=== PATIENT | female | born 1960 | race Caucasian/White ===

== ENCOUNTER 2018-04-04 21:48 | Emergency (ER) | payer MEDICAID ==
--- NOTE | 2018-04-04 23:33 | ER Document Report ---
ED Medical Screen (RME) - General Chief Complaint: Nausea/Vomiting/Diarrhea Stated Complaint: NAUSEA/VOMITING Time Seen by Provider: 04/04/18 23:30 Notes: Patient is a 57-year-old female that comes by EMS for chief complaint of over 1 week of vomiting, diarrhea, weakness, inability to eat, and congested cough. She had a fever a few days ago but none since. She states that every time she eats she vomits or has multiple episodes of diarrhea. She denies recent antibiotics. Generalized abdominal pain. Congested cough. Past medical history includes diabetes, CAD, PE on blood thinners, smoking, COPD. TRAVEL OUTSIDE OF THE [place] IN LAST 30 DAYS: No - Related Data Allergies/Adverse Reactions: Penicillins Allergy (Severe, Verified 09/10/12 20:51) Sulfa (Sulfonamide Antibiotics) Allergy (Severe, Verified 09/10/12 20:51) Past Medical History - Past Medical History Cardiac Medical History: Reports: Hx Hypercholesterolemia, Hx Hypertension Pulmonary Medical History: Reports: Hx Asthma, Hx COPD, Hx Pneumonia, Hx Sleep Apnea Denies: Hx Tuberculosis Past Surgical History: Reports: Hx Cholecystectomy, Hx Gynecologic Surgery - bladder tack, Hx Hysterectomy, Hx Oral Surgery. Denies: Hx Pacemaker - Immunizations Immunizations up to date: Yes Hx Diphtheria, Pertussis, Tetanus Vaccination: Yes Physical Exam - Vital signs Vitals: Temp Pulse BP Pulse Ox 97.6 F 98 170/92 H 100 04/04/18 22:00 04/04/18 22:00 04/04/18 22:00 04/04/18 22:00 - Respiratory Respiratory status: No: Respiratory distress Breath sounds: Decreased air movement, Nonproductive cough - Frequent congested nonproductive cough - Abdominal Tenderness: Tender - Minimal generalized tenderness, nonspecific, no guarding, exam limited by sitting position Course - Re-evaluation Re-evalutation: I have greeted and performed a rapid initial assessment of this patient. A comprehensive ED assessment and evaluation of the patient, analysis of test results and completion of the medical decision making process will be conducted by additional ED providers. - Vital Signs Vital signs: Temp Pulse Resp BP Pulse Ox 97.6 F 98 170/92 H 100 04/04/18 22:00 04/04/18 22:00 04/04/18 22:00 04/04/18 22:00 Doctor's Discharge - Discharge Referrals: MILLY SANTANA PA [Primary Care Provider] - Follow up as needed
[2018-04-05 00:02] LABS: ABSOLUTE BASOPHILS # (AUTO) 0.1 10^3/uL (0.0-0.2); ABSOLUTE EOSINOPHILS # (AUTO) 0.1 10^3/uL (0.0-0.6); ABSOLUTE LYMPHOCYTES (AUTO) 1.4 10^3/uL (0.5-4.7); ABSOLUTE MONOCYTES (AUTO) 0.7 10^3/uL (0.1-1.4); ABSOLUTE NEUT (AUTO) 14.3 10^3/uL (1.7-8.2); BASOPHILS % (AUTO) 0.5 % (0-2); EOSINOPHILS % (AUTO) 0.4 % (0-6); HEMATOCRIT 44.1 % (36.0-47.0); HEMOGLOBIN 14.8 g/dL (12.0-15.5); LYMPHOCYTES % (AUTO) 8.2 % (13-45); MEAN CORPUSCULAR HEMOGLOBIN 27.8 pg (27.0-33.4); MEAN CORPUSCULAR HGB CONC 33.6 g/dL (32.0-36.0); MEAN CORPUSCULAR VOLUME 83 fl (80-97); MONOCYTES % (AUTO) 4.2 % (3-13); PLATELET COUNT 266 10^3/uL (150-450); RED BLOOD COUNT 5.33 10^6/uL (3.72-5.28); RED CELL DISTRIBUTION WIDTH 14.2 % (11.5-14.0); SEGMENTED NEUTROPHILS % (AUTO) 86.7 % (42-78); TOTAL CELLS COUNTED % (AUTO) 100 %; WHITE BLOOD COUNT 16.5 10^3/uL (4.0-10.5)
[2018-04-05 00:28] LABS: ALANINE AMINOTRANSFERASE 22 U/L (9-52); ALBUMIN 3.7 g/dL (3.5-5.0); ALKALINE PHOSPHATASE 80 U/L (38-126); ANION GAP 10 (5-19); ASPARTATE AMINO TRANSFERASE 14 U/L (14-36); BILIRUBIN,DIRECT 0.3 mg/dL (0.0-0.4); BILIRUBIN,TOTAL 0.5 mg/dL (0.2-1.3); BLOOD UREA NITROGEN 12 mg/dL (7-20); CALCIUM 9.5 mg/dL (8.4-10.2); CARBON DIOXIDE 29 mmol/L (22-30); CHLORIDE 105 mmol/L (98-107); GLUCOSE 123 mg/dL (75-110); POTASSIUM 4.6 mmol/L (3.6-5.0); SODIUM 143.9 mmol/L (137-145); TOTAL PROTEIN 6.4 g/dL (6.3-8.2)
[2018-04-05 01:10] LABS: APPEARANCE,URINE CLEAR; BILIRUBIN,URINE NEGATIVE (NEGATIVE); COLOR,URINE YELLOW; GLUCOSE, URINE NEGATIVE (NEGATIVE); KETONES,URINE TRACE mg/dL (NEGATIVE); LEUKOCYTE ESTERASE,URINE NEGATIVE (NEGATIVE); NITRITE,URINE NEGATIVE (NEGATIVE); PROTEIN,URINE NEGATIVE (NEGATIVE); URINE SPECIFIC GRAVITY 1.016
--- NOTE | 2018-04-05 02:08 | ER Document Report ---
ED General - General Chief Complaint: Nausea/Vomiting/Diarrhea Stated Complaint: NAUSEA/VOMITING Time Seen by Provider: 04/04/18 23:30 Notes: The patient is a 57-year-old female, past medical history gastric ulcer, renal, presents with 1 week of epigastric pain, intermittent nausea and vomiting is now a mild dull frontal headache. She has had headaches like this in the past when she is dehydrated. She was also having some watery diarrhea, but this is improving. She denies fevers, hematemesis, chest pain, shortness of breath, back pain, syncope, rash, focal weakness, numbness, tingling, neck stiffness, difficulty walking or seizures. TRAVEL OUTSIDE OF THE [place] IN LAST 30 DAYS: No - Related Data Allergies/Adverse Reactions: Penicillins Allergy (Severe, Verified 09/10/12 20:51) Sulfa (Sulfonamide Antibiotics) Allergy (Severe, Verified 09/10/12 20:51) Past Medical History - General Information source: Patient - Social History Smoking Status: Current Every Day Smoker Family History: Reviewed & Not Pertinent - Past Medical History Cardiac Medical History: Reports: Hx Hypercholesterolemia, Hx Hypertension Pulmonary Medical History: Reports: Hx Asthma, Hx COPD, Hx Pneumonia, Hx Sleep Apnea Denies: Hx Tuberculosis Past Surgical History: Reports: Hx Cholecystectomy, Hx Gynecologic Surgery - bladder tack, Hx Hysterectomy, Hx Oral Surgery. Denies: Hx Pacemaker - Immunizations Immunizations up to date: Yes Hx Diphtheria, Pertussis, Tetanus Vaccination: Yes Review of Systems - Review of Systems Notes: REVIEW OF SYSTEMS: CONSTITUTIONAL: -fevers, -chills EENT: -eye pain, -difficulty swallowing, -nasal congestion CARDIOVASCULAR: -chest pain, -syncope. RESPIRATORY: +cough, -SOB GASTROINTESTINAL: +epigastric abdominal pain, +nausea, +vomiting, +diarrhea GENITOURINARY: -dysuria, -hematuria MUSCULOSKELETAL: -back pain, -neck pain SKIN: -rash or skin lesions. HEMATOLOGIC: -easy bruising or bleeding. LYMPHATIC: -swollen, enlarged glands. NEUROLOGICAL: -altered mental status or loss of consciousness, +headache, - neurologic symptoms PSYCHIATRIC: -anxiety, -depression. ALL OTHER SYSTEMS REVIEWED AND NEGATIVE. Physical Exam - Vital signs Vitals: Temp Pulse BP Pulse Ox 97.6 F 98 170/92 H 100 04/04/18 22:00 04/04/18 22:00 04/04/18 22:00 04/04/18 22:00 - Notes Notes: PHYSICAL EXAMINATION: GENERAL: Well-appearing, well-nourished and in no acute distress. HEAD: Atraumatic, normocephalic. EYES: Pupils equal round and reactive to light, extraocular movements intact, sclera anicteric, conjunctiva are normal. ENT: nares patent, oropharynx clear without exudates. Moist mucous membranes. NECK: Normal range of motion, supple without lymphadenopathy LUNGS: Breath sounds clear to auscultation bilaterally and equal. No wheezes rales or rhonchi. HEART: Regular rate and rhythm without murmurs ABDOMEN: Soft, mild epigastric tenderness, normoactive bowel sounds. No guarding, no rebound. No masses appreciated. EXTREMITIES: Normal range of motion, no pitting or edema. No cyanosis. NEUROLOGICAL: Cranial nerves grossly intact. Normal speech, normal gait. Normal sensory and motor exams. PSYCH: Normal mood, normal affect. SKIN: Warm, Dry, normal turgor, no rashes or lesions noted. Course - Re-evaluation Re-evalutation: Patient appears very well. Her headache is benign in nature and is not consistent with ICH, SAH or meningitis at this time. After headache cocktail, she is no longer feeling nauseous and does not have a headache. Blood work is unremarkable, other than a leukocytosis, but she has had higher values in the past. Instructed her to increase her Prilosec to twice a day and follow-up with her primary care physician for further evaluation and treatments. - Vital Signs Vital signs: Temp Pulse Resp BP Pulse Ox 97.6 F 98 18 170/92 H 99 04/05/18 02:51 04/05/18 02:51 04/05/18 02:51 04/05/18 02:51 04/05/18 02:51 - Laboratory Result Diagrams: 04/04/18 23:46 04/04/18 23:46 Laboratory results interpreted by me: 04/04/18 04/04/18 04/05/18 23:46 23:46 00:55 WBC 16.5 H RBC 5.33 H RDW 14.2 H Seg Neutrophils % 86.7 H Lymphocytes % 8.2 L Absolute Neutrophils 14.3 H Glucose 123 H Urine Ketones TRACE H Urine Urobilinogen 2.0 H - Diagnostic Test Radiology reviewed: Image reviewed, Reports reviewed Radiology results interpreted by me: CXR: NAD Discharge - Discharge Clinical Impression: Epigastric abdominal pain, Nausea vomiting and diarrhea Headache Qualifiers: Headache type: unspecified Headache chronicity pattern: unspecified pattern Intractability: not intractable Qualified Code(s): R51 - Headache Condition: Stable Disposition: HOME, SELF-CARE Additional Instructions: HEADACHE: The physician does not feel that the headache you are experiencing has a serious underlying cause. Most headaches are due to emotional stress, with resultant muscle tension (tension headache). Occasionally, headaches are secondary to changes in the blood vessels of the scalp (vascular headache and migraine headache). Sometimes, a headache is the first symptom of another developing illness, such as a viral infection. You have no evidence of stroke, bleeding, meningitis, or other serious cause of your headache. The treatment of headaches varies with the severity and cause of the pain. Not all headaches need pain shots. In fact, there is evidence that using narcotics for headaches may make them worse in the long run. The physician will determine the therapy that's in your best interest. If you develop a fever, if the headache is different from any you've previously experienced, or if the headache progressively worsens, then call your physician at once or go to the emergency room. REGLAN (METOCLOPRAMIDE): Reglan has been prescribed. This medicine affects the stomach and intestines. It can be used to treat nausea and vomiting, to prevent reflux of stomach acid up into the esophagus, or to increase the contractions of the stomach and intestines. It is often prescribed for esophagitis, and for paralysis of the stomach in diabetics. Reglan can cause either mild restlessness or drowsiness. You should contact the doctor at once if you become extremely restless, anxious, or cannot sleep, or if you develop uncontrollable motions of the lips, tongue, or jaw. Do not take alcohol with this medicine. Do not drive or operate machinery until you have been taking this medicine long enough to know how it affects you. Call the doctor if you develop abdominal pains, lightheadedness, black stool, or blood in the stool or vomitus. USE OF DIPHENHYDRAMINE: Diphenhydramine (Benadryl) is an antihistamine and has been recommended to help treat your headache and to prevent side effects of other medications used to treat headaches. The medication can be repeated four times daily. Age Elixir (12.5 mg/tsp) 25 mg pill adult 1-2 tabs Antihistamines may cause drowsiness, especially with the first dose. Do not operate machinery or drive while under the effects of the medication. Do not combine the medication with alcohol, or with any other medication without talking to your doctor. FOLLOW-UP CARE: If you have been referred to a physician for follow-up care, call the physician s office for an appointment as you were instructed or within the next two days. If you experience worsening or a significant change in your symptoms, notify the physician immediately or return to the Emergency Department at any time for re-evaluation. VOMITING: Vomiting (or nausea without vomiting) can be caused by many other different problems. It can mean that something's wrong with the stomach, such as ulcers or inflammation or the intestinal tract, such as appendicitis. But it can also be a symptom of a problem that has nothing to do with the stomach or intestines. Vomiting is common with severe headaches, earaches, tonsillitis, and kidney infections, etc. We see it with pneumonia or heart attacks. Drugs can cause nausea and vomiting. Many abdominal problems cause vomiting; for example, gallstones, kidney stones, pancreatitis, and intestinal obstruction ( blocked bowels). In most cases, curing the vomiting depends on fixing the problem that caused it. For temporary relief, we may use an anti-nausea medicine. For home use, we can prescribe suppositories, chewable pills, pills that dissolve in the mouth, or liquid anti-nausea drugs. If the vomiting seems to be caused by a problem in the stomach, acid-suppressing drugs may be prescribed as well. It's important to avoid dehydration. Sip small amounts of clear liquids ( soft drinks, tea, broth, etc) . Try to take fluids frequently even if you are vomiting to prevent dehydration. Take increasing amounts of fluid and when liquids are being consumed successfully, advance to small amounts of bland food (toast, soups, mashed potatoes, etc.) until you are able to resume a regular diet. Avoid aspirin, tobacco, and alcohol. If the vomiting worsens, if the problem that's making you vomit worsens, or if there's evidence of bleeding in the stomach (such as black, tarry stool, or bloody or black vomit), you should return immediately. Also, return if abdominal pain worsens or becomes localized to one area or you develop high fever. Call your doctor if you aren't improved in 24 hours. DIARRHEA, NON-SPECIFIC: Diarrhea means frequent, watery stools. There are many causes. Any problem that keeps the intestinal tract from absorbing water from the stool can lead to diarrhea. A sudden new diarrhea problem is usually caused by a virus, food sensitivity, toxic bacteria, or drugs. In this case, we expect the problem to go away soon. Testing is done only if you seem seriously ill from the diarrhea. If you have chronic diarrhea, or diarrhea that keeps coming back, we need to find out why. Chronic diarrhea can be due to inflammation of the bowels such as Crohn's disease or ulcerative colitis, food sensitivity such as intolerance to lactose or wheat protein, irritable bowel syndrome, and other problems. If your diarrhea is a significant problem but it's not clear why you have it, we' ll refer you to a specialist for further testing. During an episode of diarrhea, drink small amounts (two to six ounces) of clear liquids (soft drinks, sport drinks, herb teas, broth, etc). Take fluids frequently to prevent dehydration. It's usually not a problem to take mild anti- diarrhea medication such as Kaopectate or Pepto-Bismol. As the diarrhea eases, advance to small amounts of bland food (mashed potato, toast) for 24 hours. Call the physician if blood appears in your vomit or stool, if vomiting lasts longer than 24 hours, if the abdominal pain worsens or becomes localized to one area, if you develop high fever, or if you become lightheaded and weak. VIRAL SYNDROME: The physician has diagnosed a viral infection. Viruses not only cause "colds," but can cause many different symptoms including generalized aching, fever, headache, cough, diarrhea, nausea, vomiting, and fatigue. The treatment, for the most part, is simply relief of symptoms. This means that antibiotics are usually not given. Rest, fluids, pain medications and, occasionally, medication for the specific symptoms that are most bothersome will be prescribed. Use good handwashing to avoid passing the virus to others. Shared toys should be cleaned with disinfectant. Clean the toilets, sinks, and counter surfaces in bathrooms. Launder clothing in hot water. Contact the physician if you develop any new or unusual symptoms such as severe headache, stiff neck, high fever, chest pain, productive cough, or shortness of breath. You should be rechecked if you don't see marked improvement within seven to 10 days. INTRAVENOUS (I V) FLUIDS: As part of your care today, you received intravenous (IV) fluids. IV fluids are administered to patients who are dehydrated or to those who have certain chemical (electrolyte) abnormalities that need correcting. FOLLOW-UP CARE: If you have been referred to a physician for follow-up care, call the physician s office for an appointment as you were instructed or within the next two days. If you experience worsening or a significant change in your symptoms, notify the physician immediately or return to the Emergency Department at any time for re-evaluation. Prescriptions: Ondansetron [Zofran Odt 4 mg Tablet] 1 - 2 tab PO Q4H PRN #15 tab.rapdis PRN Reason: For Nausea/Vomiting Forms: Elevated Blood Pressure Referrals: MILLY SANTANA PA [NO LOCAL MD] - Follow up as needed LEVI BLACK MD [NO LOCAL MD] - Follow up as needed COLETTE BUCHANAN MD [ACTIVE STAFF] - Follow up as needed
--- NOTE | 2018-04-05 02:12 | RADIOLOGY REPORT (SQ) ---
EXAM DESCRIPTION: XR CHEST 2 VIEWS COMPLETED DATE/TME: 04/04/2018 23:30 CLINICAL HISTORY: 57 years Female, persistent worsening cough COMPARISON: None. FINDINGS: Increased lung volume, clear parenchyma, normal cardiac silhouette, atherosclerosis, regular upper abdominal clips, and intact bony thorax. IMPRESSION: No acute cardiopulmonary findings.
[2018-04-05] MEDS ORDERED: DIPHENHYDRAMINE HCL 50 MG/ML VIAL IV ONE (02:21)
[2018-04-05] MEDS ORDERED: METOCLOPRAMIDE HCL INJ/PF 10 MG/2 ML SDV IV ONE (02:21)
[2018-04-05] MEDS ORDERED: NORMAL SALINE 1000 ML 1,000 ML IV ONE (02:22)
[2018-04-05] MEDS ORDERED: METOCLOPRAMIDE HCL INJ/PF 10 MG/2 ML SDV ONE (03:53)
[2018-04-05 05:28] VITALS: BP 149/75
== END 2018-04-05 05:29 | disposition home or self-care (01) ==
LOC: ER 21:48
DX: R10.13 Epigastric pain (principal); R11.2 Nausea with vomiting, unspecified; R19.7 Diarrhea, unspecified; R51 Headache; F17.200 Nicotine dependence, unspecified, uncomplicated; E78.00 Pure hypercholesterolemia, unspecified; I10 Essential (primary) hypertension; J44.9 Chronic obstructive pulmonary disease, unspecified; Z88.2 Allergy status to sulfonamides; Z88.0 Allergy status to penicillin; Z90.49 Acquired absence of other specified parts of digestive tract; Z90.710 Acquired absence of both cervix and uterus
CPT/HCPCS: 99284; 96361; 96374; 96375; 36415; 83690; 85025; 80053; 81001; 71046; J1200; J2765; J7030

== ENCOUNTER 2018-11-09 14:37 | Emergency (ER) | payer MEDICAID ==
[2018-11-09] MEDS ORDERED: MORPHINE SULFATE 10 MG/ML INJ IM ONE (16:27)
[2018-11-09] MEDS ORDERED: LIDOCAINE 5% (700 MG) TRANSDERMAL ADH..PATCH TP ONE (16:27)
[2018-11-09] MEDS ORDERED: KETOROLAC TROMETHAMINE 60 MG/2 ML SDV IM ONE (16:28)
--- NOTE | 2018-11-09 16:30 | ER Document Report ---
ED Medical Screen (RME) - General Chief Complaint: Fall Stated Complaint: BUTTOCKS PAIN Time Seen by Provider: 11/09/18 16:18 Primary Care Provider: MALINDA HERNANDEZ MD [Primary Care Provider] - Follow up as needed Mode of Arrival: Ambulatory Information source: Patient Notes: Patient is a 58-year-old female who presents to the emergency department with chief complaint of back pain after falling this morning patient reports she was trying to step out of her bathtub when she fell backwards striking her back onto the toilet. She denies striking her head or any loss of consciousness. Patient has not vomited since the fall. Patient reports severe pain to her thoracic and lumbar spine. Patient also reports of pain to the left paraspinous muscles. Exam: Tenderness to palpation to thoracic and lumbar spine. I have greeted and performed a rapid initial assessment of this patient. A comprehensive ED assessment and evaluation of the patient, analysis of test re sults and completion of the medical decision making process will be conducted by additional ED providers. Dictation of this chart was performed using voice recognition software; therefore, there may be some unintended grammatical errors. TRAVEL OUTSIDE OF THE [place] IN LAST 30 DAYS: No - Related Data Allergies/Adverse Reactions: Penicillins Allergy (Severe, Verified 11/09/18 14:46) Sulfa (Sulfonamide Antibiotics) Allergy (Severe, Verified 11/09/18 14:46) Past Medical History - Past Medical History Cardiac Medical History: Reports: Hx Hypercholesterolemia, Hx Hypertension Pulmonary Medical History: Reports: Hx Asthma, Hx COPD, Hx Pneumonia, Hx Sleep Apnea Denies: Hx Tuberculosis Renal/ Medical History: Denies: Hx Peritoneal Dialysis Past Surgical History: Reports: Hx Cholecystectomy, Hx Gynecologic Surgery - bladder tack, Hx Hysterectomy, Hx Oral Surgery. Denies: Hx Pacemaker - Immunizations Immunizations up to date: Yes Hx Diphtheria, Pertussis, Tetanus Vaccination: Yes Physical Exam - Vital signs Vitals: Temp Pulse Resp BP Pulse Ox 98.7 F 80 18 98/65 L 99 11/09/18 15:32 11/09/18 15:32 11/09/18 15:32 11/09/18 15:32 11/09/18 15:32 Course - Vital Signs Vital signs: Temp Pulse Resp BP Pulse Ox 98.7 F 80 18 98/65 L 99 11/09/18 15:32 11/09/18 15:32 11/09/18 15:32 11/09/18 15:32 11/09/18 15:32 Doctor's Discharge - Discharge Referrals: MALINDA HERNANDEZ MD [Primary Care Provider] - Follow up as needed
--- NOTE | 2018-11-09 17:15 | RADIOLOGY REPORT (SQ) ---
EXAM DESCRIPTION: T SPINE AP/LAT COMPLETED DATE/TIME: 11/09/2018 5:07 pm REASON FOR STUDY: FALL COMPARISON: 04/16/2013 NUMBER OF VIEWS: Two views. TECHNIQUE: AP and lateral radiographic images acquired of the thoracic spine. LIMITATIONS: None. FINDINGS: MINERALIZATION: Normal. ALIGNMENT: Normal. No scoliosis. VERTEBRAE: No fracture or bone lesion. Maintained height, normal segmentation. DISCS: Scattered osteophytes. No dominant level. HARDWARE: None in the spine. MEDIASTINUM AND SOFT TISSUES: Normal heart size and aortic contour. No soft tissue abnormality. VISUALIZED LUNG MYERS: Clear. OTHER: No other significant finding. IMPRESSION: Mild degenerative changes. No acute findings. TECHNICAL DOCUMENTATION: JOB ID: [id number] [employer]- All Rights Reserved Reading location - IP/workstation name: [email or web address]
--- NOTE | 2018-11-09 17:19 | RADIOLOGY REPORT (SQ) ---
EXAM DESCRIPTION: L SPINE WHOLE COMPLETED DATE/TIME: 11/09/2018 5:07 pm REASON FOR STUDY: FALL COMPARISON: None. NUMBER OF VIEWS: Five views including obliques. TECHNIQUE: AP, lateral, oblique, and sacral radiographic images acquired of the lumbar spine. LIMITATIONS: None. FINDINGS: MINERALIZATION: Normal. SEGMENTATION: Normal. No transitional anatomy. ALIGNMENT: Normal. VERTEBRAE: Maintained height. No fracture or worrisome bone lesion. DISCS: Scattered osteophytes. No focal disc space narrowing. POSTERIOR ELEMENTS: Pedicles and facets are intact. No pars defect or posterior arch defects. HARDWARE: Vascular stent PARASPINAL SOFT TISSUES: Normal. PELVIS: Intact as visualized. No fractures or worrisome bone lesions. SI joints intact. OTHER: No other significant finding. IMPRESSION: No acute findings. Scattered osteophytes indicating mild degenerative disc. TECHNICAL DOCUMENTATION: JOB ID: [id number] [employer]- All Rights Reserved Reading location - IP/workstation name: [email or web address]
--- NOTE | 2018-11-09 17:32 | ER Document Report ---
ED Fall - General Mode of Arrival: Ambulatory Information source: Patient TRAVEL OUTSIDE OF THE [place] IN LAST 30 DAYS: No - General Chief Complaint: Fall Stated Complaint: BUTTOCKS PAIN Time Seen by Provider: 11/09/18 16:18 Primary Care Provider: MALINDA HERNANDEZ MD [Primary Care Provider] - Follow up as needed Notes: Patient is a 58-year-old female who presents to the emergency department with chief complaint of back pain after falling this morning patient reports she was trying to step out of her bathtub when she fell backwards striking her back onto the toilet. She denies striking her head or any loss of consciousness. Patient has not vomited since the fall. Patient reports severe pain to her thoracic and lumbar spine. Patient also reports of pain to the left paraspinous muscles. Denies any episodes of bowel incontinence, urinary retention or saddle anesthesia. (JESUS ALBERTO WRIGHT) - Related data Allergies/Adverse Reactions: Penicillins Allergy (Severe, Verified 11/09/18 14:46) Sulfa (Sulfonamide Antibiotics) Allergy (Severe, Verified 11/09/18 14:46) Past Medical History - General Information source: Patient - Social History Smoking Status: Never Smoker Frequency of alcohol use: None Drug Abuse: None Family History: Reviewed & Not Pertinent - Past Medical History Cardiac Medical History: Reports: Hx Hypercholesterolemia, Hx Hypertension Pulmonary Medical History: Reports: Hx Asthma, Hx COPD, Hx Pneumonia, Hx Sleep Apnea Denies: Hx Tuberculosis Renal/ Medical History: Denies: Hx Peritoneal Dialysis Past Surgical History: Reports: Hx Cholecystectomy, Hx Gynecologic Surgery - bladder tack, Hx Hysterectomy, Hx Oral Surgery. Denies: Hx Pacemaker - Immunizations Immunizations up to date: Yes Hx Diphtheria, Pertussis, Tetanus Vaccination: Yes Review of Systems - Review of Systems Constitutional: No symptoms reported EENT: No symptoms reported Cardiovascular: No symptoms reported Respiratory: No symptoms reported Gastrointestinal: No symptoms reported Genitourinary: No symptoms reported Female Genitourinary: No symptoms reported Musculoskeletal: See HPI Skin: No symptoms reported Hematologic/Lymphatic: No symptoms reported Neurological/Psychological: No symptoms reported Physical Exam - Vital signs Vitals: Temp Pulse Resp BP Pulse Ox 98.7 F 80 18 98/65 L 99 11/09/18 15:32 11/09/18 15:32 11/09/18 15:32 11/09/18 15:32 11/09/18 15:32 - Notes Notes: PHYSICAL EXAMINATION: GENERAL: Well-appearing, well-nourished and in no acute distress. HEAD: Atraumatic, normocephalic. EYES: Pupils equal round and reactive to light, extraocular movements intact, conjunctiva are normal. ENT: Nares patent, oropharynx clear without exudates. Moist mucous membranes. NECK: Normal range of motion, supple without lymphadenopathy LUNGS: Breath sounds clear to auscultation bilaterally and equal. No wheezes rales or rhonchi. HEART: Regular rate and rhythm without murmurs ABDOMEN: Soft, nontender, nondistended abdomen. No guarding, no rebound. No masses appreciated. Female : deferred Musculoskeletal: Normal range of motion, no pitting or edema. No cyanosis. Tenderness to palpation to lumbar and thoracic paraspinous muscles on the left side. Vertebral tenderness noted in the lumbar and thoracic region. No ecchymosis or erythema noted. NEUROLOGICAL: Cranial nerves grossly intact. Normal speech, normal gait. Normal sensory, motor exams PSYCH: Normal mood, normal affect. SKIN: Warm, Dry, normal turgor, no rashes or lesions noted. (JESUS ALBERTO WRIGHT) Course - Re-evaluation Re-evalutation: Patient's lumbar and thoracic spine x-rays are negative for any acute findings. Patient was medicated with a Lidoderm patch, IM Toradol and IM morphine. After administration of the IM morphine patient reported improvement of her pain however the she then vomited. Patient stated that she felt lightheaded and "woozy" after the episode of vomiting. Will hold patient over and monitor her until her symptoms have evolved. Patient vomited for the second time. We will give her additional dose of antiemetics as well as IV fluids and observe her a little longer prior to discharge. (JESUS ALBERTO WRIGHT) 11/10/18 00:43 Patient is still been complaining of nausea and vomiting when sitting up. I gave her an additional Zofran 4 mg IV 1 time with no response. She continued to vomit several times. She at one point she felt she was okay and she stood up because her ride was coming but she was vomiting as she was walking towards the door. She was put back in the room, a new saline lock placed, and she was given Reglan 10 mg IV 1 time and Benadryl 12.5 mg IV 1 time. Plan is to reassess her response in about 10 minutes. 11/10/18 01:50 Patient still complaining of nausea and disorientation. Discussed patient with Dr. Leach, who recommended we give Phenergan 12.5 mg IV [address] head without contrast to ensure there is no head injury. At this time I will also discussed the patient with YANI Small for handoff. (MONIKA LINDO) - Vital Signs Vital signs: Temp Pulse Resp BP Pulse Ox 97.4 F 97 17 130/79 H 93 11/09/18 23:22 11/09/18 23:22 11/09/18 23:22 11/09/18 23:22 11/09/18 23:22 Discharge - Discharge Clinical Impression: Musculoskeletal strain Fall Qualifiers: Encounter type: initial encounter Qualified Code(s): W19.XXXA - Unspecified fall, initial encounter Condition: Stable Disposition: HOME, SELF-CARE Additional Instructions: Muscle Strain You have strained a muscle -- torn the fibers within the muscle. This often occurs with strenuous exertion, or during an injury that suddenly stretches the muscle. The seriousness of a strain varies. Some strains heal within days, others cause problems for months. X-rays cannot show a muscle strain. X-rays are taken only if symptoms suggest that a fracture could be present. The usual treatment of a muscle strain is rest and ice packs. Sometimes, a sling, splint, or crutches may be necessary to rest the muscle. The muscle can be used again once pain subsides. Severe strains require a special exercise and stretching program to prevent permanent stiffness and disability. Your doctor will advise you if this will be necessary. Call the doctor immediately if pain or swelling becomes severe, or if numbness or discoloration develop. The x-rays of your back were normal today. There is no evidence that you have fracture or dislocated anything. Please take ibuprofen 600 mg every 6 hours. Use the muscle relaxer as prescribed on the bottle. If your insurance does not cover the Lidoderm patches you may purchase [id number] Aspercreme with lidocaine or salon Desir patches these worked in a similar fashion. If you are still experiencing pain by the middle of next week please call your primary care provider and schedule a follow-up appointment. Please return to the emergency department immediately if you experience urinary retention, you are incontinent of your bowels or you develop numbness and tingling into your extremities. Prescriptions: Lidocaine [Lidoderm 5% (700 mg) Transdermal Patch] 1 patch TP DAILY #30 adh..patch Methocarbamol [Robaxin 500 mg Tablet] 500 mg PO QID #16 tablet Forms: Return to Work Referrals: MALINDA HERNANDEZ MD [Primary Care Provider] - Follow up as needed
[2018-11-09] MEDS ORDERED: ONDANSETRON 4 MG TAB.RAPDIS PO ONE (18:14)
[2018-11-09] MEDS: ONDANSETRON ODT 4 MG TAB (6 TAB/ER DISP) PO PRN ×2 (18:28→23:34)
[2018-11-09] MEDS ORDERED: ONDANSETRON HCL INJ/PF 4 MG/2 ML SDV IV ONE ×2 (19:50→22:01)
[2018-11-09] MEDS ORDERED: METOCLOPRAMIDE HCL INJ/PF 10 MG/2 ML SDV IV ONE (23:59)
[2018-11-09] MEDS ORDERED: DIPHENHYDRAMINE HCL 50 MG/ML VIAL IV ONE (23:59)
[2018-11-10] MEDS ORDERED: PROMETHAZINE HCL INJ 25 MG/1 ML VIAL IV ONE (01:51)
--- NOTE | 2018-11-10 02:39 | RADIOLOGY REPORT (SQ) ---
EXAM DESCRIPTION: CT HEAD WITHOUT IV CONTRAST COMPLETED DATE/TME: 11/10/2018 01:49 CLINICAL HISTORY: 58 years, Female, intractable vomiting, dizziness COMPARISON: None. TECHNIQUE: 185 Images stored on PACS. All CT scanners at this facility use dose modulation, iterative reconstruction, and/or weight based dosing when appropriate to reduce radiation dose to as low as reasonably achievable (ALARA). [facility]: Dose Right [facility]: CareDose [facility]: Dose Right [facility]: Teradose 4D [facility]: Access Point LIMITATIONS: None. FINDINGS: The globes are intact. The paranasal sinuses and mastoid air cells are unremarkable. No displaced or depressed skull fracture. No intra or extra-axial hemorrhage. CT is limited for evaluation of acute infarct. No CT evidence for large or territorial acute infarct. Mild diffuse atrophy. Hypodensities in the periventricular and subcortical white matter, consistent with sequelae of small vessel ischemic change. What is likely an area of remote infarct in the right cerebellar hemisphere. IMPRESSION: Atrophy with small vessel ischemic change. 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 If symptoms persist consider follow-up with dedicated MRI TECHNICAL DOCUMENTATION: Quality ID # [id number]: Final reports with documentation of one or more dose reduction techniques (e.g., Automated exposure control, adjustment of the mA and/or kV according to patient size, use of iterative reconstruction technique) copyright 2011 [employer]- All Rights Reserved
--- NOTE | 2018-11-10 06:24 | ER Document Report ---
Addendum entered and electronically signed by DARIUS ZAMARRIPA PA-C 11/10/18 06:28: Discharge - Discharge Clinical Impression: Musculoskeletal strain Fall Qualifiers: Encounter type: initial encounter Qualified Code(s): W19.XXXA - Unspecified fall, initial encounter Nausea and vomiting Qualifiers: Vomiting type: unspecified Vomiting Intractability: non-intractable Qualified Code(s): R11.2 - Nausea with vomiting, unspecified Condition: Stable Disposition: HOME, SELF-CARE Additional Instructions: Muscle Strain You have strained a muscle -- torn the fibers within the muscle. This often occurs with strenuous exertion, or during an injury that suddenly stretches the muscle. The seriousness of a strain varies. Some strains heal within days, others cause problems for months. X-rays cannot show a muscle strain. X-rays are taken only if symptoms suggest that a fracture could be present. The usual treatment of a muscle strain is rest and ice packs. Sometimes, a sling, splint, or crutches may be necessary to rest the muscle. The muscle can be used again once pain subsides. Severe strains require a special exercise and stretching program to prevent permanent stiffness and disability. Your doctor will advise you if this will be necessary. Call the doctor immediately if pain or swelling becomes severe, or if numbness or discoloration develop. The x-rays of your back were normal today. There is no evidence that you have fracture or dislocated anything. Please take ibuprofen 600 mg every 6 hours. Use the muscle relaxer as prescribed on the bottle. If your insurance does not cover the Lidoderm patches you may purchase [id number] Aspercreme with lidocaine or salon Desir patches these worked in a similar fashion. If you are still experiencing pain by the middle of next week please call your primary care provider and schedule a follow-up appointment. Please return to the emergency department immediately if you experience urinary retention, you are incontinent of your bowels or you develop numbness and tingling into your extremities. Prescriptions: Lidocaine [Lidoderm 5% (700 mg) Transdermal Patch] 1 patch TP DAILY #30 adh..patch Methocarbamol [Robaxin 500 mg Tablet] 500 mg PO QID #16 tablet Promethazine HCl [Phenergan 25 mg Tablet] 1 tab PO Q6H PRN #5 tablet PRN Reason: Forms: Return to Work Referrals: MALINDA HERNANDEZ MD [Primary Care Provider] - Follow up as needed Course - Vital Signs Vital signs: Temp Pulse Resp BP Pulse Ox 98.3 F 88 18 115/57 L 95 11/10/18 03:28 11/10/18 03:28 11/10/18 03:28 11/10/18 03:28 11/10/18 03:28 Physical Exam - Vital signs Vitals: Temp Pulse Resp BP Pulse Ox 98.7 F 80 18 98/65 L 99 11/09/18 15:32 11/09/18 15:32 11/09/18 15:32 11/09/18 15:32 11/09/18 15:32 Original Note: Doctor's Note Notes: 11/10/18 06:17 S: Patient is a 58-year-old female who was seen yesterday during day shift for fall which resulted in back and hip pain. Apparently her x-rays were negative. She was given 10 mg of morphine intramuscular. Subsequently started having intractable vomiting. The patient was then signed out to the physician clinical trials assistant working the 2 PM to 2 AM shift. Patient was still having some episodes of emesis. She was subsequently signed out to me. Patient was resting comfortably/sleeping without vomiting for the remainder of the shift. At this moment, she has gotten up out of bed and ambulated with the nurse down the hallway without throwing up. Patient indicates that she is very hungry. She will be fed a very light sensible breakfast to see how she does. O: GENERAL: Awake, no acute distress, not ill-appearing Abdomen: Nondistended. Vital signs stable A: Nausea and vomiting secondary to narcotic administration-resolved P: Discharge home with previousLY prescribed medications
[2018-11-10 07:16] VITALS: BP 115/68
== END 2018-11-10 07:22 | disposition home or self-care (01) ==
LOC: ER 14:37
DX: S39.012A Strain of muscle, fascia and tendon of lower back, initial encounter (principal); R41.0 Disorientation, unspecified; R11.2 Nausea with vomiting, unspecified; W18.2XXA Fall in (into) shower or empty bathtub, initial encounter; Y92.002 Bathroom of unspecified non-institutional (private) residence as the place of occurrence of the external cause; E78.00 Pure hypercholesterolemia, unspecified; I10 Essential (primary) hypertension; Z88.0 Allergy status to penicillin; Z88.2 Allergy status to sulfonamides; Z90.49 Acquired absence of other specified parts of digestive tract; Z90.710 Acquired absence of both cervix and uterus
CPT/HCPCS: 96376; 99284; 96372; 96374; 96375; 82962; 72110; 72070; 70450; J1200; J1885; J2765; J2270; J3490; J2405

== ENCOUNTER → 2019-05-23 | Outpatient (CLI) | payer MEDICAID ==
--- NOTE | 2019-05-23 10:40 | RADIOLOGY REPORT (SQ) ---
EXAM DESCRIPTION: KNEE LEFT 4 VIEW COMPLETED DATE/TIME: 05/23/2019 9:57 am REASON FOR STUDY: L KNEE PAIN M25.562 PAIN IN LEFT KNEE COMPARISON: 07/28/2007 NUMBER OF VIEWS: Four views. TECHNIQUE: AP, lateral, and both oblique radiographic images acquired of the left knee. LIMITATIONS: None. FINDINGS: MINERALIZATION: Normal. BONES: No acute fracture dislocation. No worrisome bone lesions. Mild tricompartment osteophytosis and medial joint space loss. JOINT: No significant effusion. SOFT TISSUES: No soft tissue swelling. No radio-opaque foreign body. OTHER: No other significant finding. IMPRESSION: No evidence of acute bony abnormality. Mild osteoarthritic changes with joint space loss, greatest medially. TECHNICAL DOCUMENTATION: JOB ID: [id number] [employer]- All Rights Reserved Reading location - IP/workstation name: [email or web address]
== END ==
LOC: RAD 09:27
PROVIDERS: ATTEND Nurse Practitioner Primary Care
DX: M17.12 Unilateral primary osteoarthritis, left knee (principal); M25.562 Pain in left knee

== ENCOUNTER → 2020-06-10 | Outpatient (CLI) | payer MEDICAID ==
--- NOTE | 2020-06-10 13:55 | RADIOLOGY REPORT (SQ) ---
EXAM DESCRIPTION: MRI LT LOWER JOINT WITHOUT IMAGES COMPLETED DATE/TIME: 06/10/2020 10:05 am REASON FOR STUDY: M25.562 PAIN IN LEFT KNEE M25.562 PAIN IN LEFT KNEE COMPARISON: None. TECHNIQUE: Leftknee images acquired and stored on PACS. Multiplanar images include fat sensitive se quences as T1, water sensitive sequences as FST2 or STIR, cartilage sensitive sequences as FSPD, and gradient echo sequences. LIMITATIONS: Motion. FINDINGS: JOINT AND BURSAE: Small effusion tracking laterally. BONE CORTEX AND MARROW: No alteration of signal to suggest marrow replacement. No worrisome bone lesi ons. No occult fracture. ACL: Intact. No degeneration or ganglion cyst. PCL: Intact. MCL: Intact. No periligamentous edema or fluid. LCL: Intact. No periligamentous edema or fluid. MEDIAL MENISCUS: Increased T2 signal posterior horn consistent with horizontal tear. LATERAL MENISCUS: No tears. No abnormal signal. MEDIAL COMPARTMENT: Cartilage thinning. No large osteophytes or subchondral edema. LATERAL COMPARTMENT: Cartilage preserved. No bone bruises or reactive marrow edema. No osteophytes. PATELLA: No chondromalacia. No subchondral cysts. Medial and lateral retinacula intact. EXTENSOR MECHANISM: Intact. Quadriceps and patella tendons normal. SOFT TISSUES: Adjacent muscles and subcutaneous tissues normal. Normal flow void in popliteal artery and vein. OTHER: No other significant finding. IMPRESSION: Horizontal tear posterior horn medial meniscus. TECHNICAL DOCUMENTATION: JOB ID: [id number] 2010 [employer]- All Rights Reserved Reading location - IP/workstation name: [email or web address]
== END ==
LOC: RAD 09:18
PROVIDERS: ATTEND Physician Assistant
DX: M25.562 Pain in left knee (principal)